=== PATIENT | female | born 1955 | race African-American/Black ===

== ENCOUNTER → 2018-06-21 | Outpatient (CLI) | payer OTHER | LOC: WOUNDCARE 09:17 | PROVIDERS: ATTEND Surgery | DX: I87.331 Chronic venous hypertension (idiopathic) with ulcer and inflammation of right lower extremity (principal); I70.232 Atherosclerosis of native arteries of right leg with ulceration of calf; E11.622 Type 2 diabetes mellitus with other skin ulcer; L97.212 Non-pressure chronic ulcer of right calf with fat layer exposed; I87.322 Chronic venous hypertension (idiopathic) with inflammation of left lower extremity; E11.42 Type 2 diabetes mellitus with diabetic polyneuropathy; E11.65 Type 2 diabetes mellitus with hyperglycemia; I10 Essential (primary) hypertension | CPT/HCPCS: 99204 ==

== ENCOUNTER → 2018-06-21 | Outpatient (CLI) | payer OTHER ==
[2018-06-21 11:51] LABS: BASOPHILS % (AUTO) 1 % (0-10); EOSINOPHILS # (AUTO) 0.2 10^3/uL (0.0-0.3); EOSINOPHILS % (AUTO) 3 % (0-10); HEMATOCRIT 39 % (35-52); HEMOGLOBIN 13.6 G/DL (11.5-16.0); LYMPHOCYTES # (AUTO) 2.2 X 10^3 (1.0-4.0); LYMPHOCYTES % (AUTO) 38 % (12-44); MEAN CORPUSCULAR HEMOGLOBIN 30 PG (25-34); MEAN CORPUSCULAR HGB CONC 35 G/DL (32-36); MEAN CORPUSCULAR VOLUME 85 FL (80-99); MEAN PLATELET VOLUME 10.1 FL (7.4-10.4); MONOCYTES # (AUTO) 0.4 X 10^3 (0.0-1.0); MONOCYTES % (AUTO) 7 % (0-12); NEUTROPHILS % (AUTO) 52 % (42-75); PLATELET COUNT 258 10^3/uL (130-400); RED CELL DISTRIBUTION WIDTH 12.6 % (10.0-14.5); WHITE BLOOD COUNT 5.8 10^3/uL (4.3-11.0)
[2018-06-21 12:12] LABS: ALANINE AMINOTRANSFERASE 15 U/L (0-55); ALBUMIN 4.1 GM/DL (3.2-4.5); ALKALINE PHOSPHATASE 92 U/L (40-136); BILIRUBIN,TOTAL 0.5 MG/DL (0.1-1.0); BUN/CREATININE RATIO 12; CALCIUM 9.2 MG/DL (8.5-10.1); CARBON DIOXIDE 27 MMOL/L (21-32); CHLORIDE 104 MMOL/L (98-107); CREATININE SERUM 0.68 MG/DL (0.60-1.30); GFR ESTIMATED > 60; GLUCOSE 147 MG/DL (70-105); SODIUM 141 MMOL/L (135-145); TOTAL PROTEIN 7.7 GM/DL (6.4-8.2)
== END ==
LOC: LAB 11:24
PROVIDERS: ATTEND Surgery
DX: I87.331 Chronic venous hypertension (idiopathic) with ulcer and inflammation of right lower extremity (principal); I70.232 Atherosclerosis of native arteries of right leg with ulceration of calf; E11.622 Type 2 diabetes mellitus with other skin ulcer; L97.212 Non-pressure chronic ulcer of right calf with fat layer exposed; I87.322 Chronic venous hypertension (idiopathic) with inflammation of left lower extremity; E11.42 Type 2 diabetes mellitus with diabetic polyneuropathy; E11.65 Type 2 diabetes mellitus with hyperglycemia; I10 Essential (primary) hypertension
CPT/HCPCS: 36415; 80053; 83020; 85025

== ENCOUNTER → 2018-06-29 | Outpatient (CLI) | payer OTHER | LOC: WOUNDCARE 15:13 | PROVIDERS: ATTEND Surgery | DX: E11.622 Type 2 diabetes mellitus with other skin ulcer (principal); L97.212 Non-pressure chronic ulcer of right calf with fat layer exposed; I87.331 Chronic venous hypertension (idiopathic) with ulcer and inflammation of right lower extremity; I87.322 Chronic venous hypertension (idiopathic) with inflammation of left lower extremity; E11.42 Type 2 diabetes mellitus with diabetic polyneuropathy; E11.65 Type 2 diabetes mellitus with hyperglycemia; I10 Essential (primary) hypertension | CPT/HCPCS: 87070; 87205 ==

== ENCOUNTER → 2018-07-06 | Outpatient (CLI) | payer OTHER | LOC: WOUNDCARE 15:24 | PROVIDERS: ATTEND Surgery | DX: L92.1 Necrobiosis lipoidica, not elsewhere classified (principal); L97.213 Non-pressure chronic ulcer of right calf with necrosis of muscle; E11.622 Type 2 diabetes mellitus with other skin ulcer; E11.65 Type 2 diabetes mellitus with hyperglycemia ==

== ENCOUNTER → 2018-07-13 | Outpatient (CLI) | payer OTHER | LOC: WOUNDCARE 14:49 | PROVIDERS: ATTEND Surgery | DX: L92.1 Necrobiosis lipoidica, not elsewhere classified (principal); L97.213 Non-pressure chronic ulcer of right calf with necrosis of muscle; E11.622 Type 2 diabetes mellitus with other skin ulcer; E11.65 Type 2 diabetes mellitus with hyperglycemia | CPT/HCPCS: 99213 ==

== ENCOUNTER → 2018-08-30 | Outpatient (CLI) | payer OTHER ==
--- NOTE | 2018-08-30 21:24 | Diagnostic Imaging Report ---
INDICATION: Palpable lump in the left axilla. No prior studies are available for comparison. 2-D and 3-D bilateral diagnostic mammography was performed with a Computer Aided Detection (CAD) system. BB marker was placed at the area of palpable abnormality in the left axilla. FINDINGS: Scattered fibroglandular densities are identified bilaterally. Intramammary lymph node in upper-outer right breast is seen. There are fatty lymph nodes in the axillae bilaterally. No spiculated mass or malignant-appearing microcalcifications are seen. IMPRESSION: No mammographic features suspicious for malignancy are identified. Even so, sonographic interrogation of the area of palpable abnormality in the left axilla is recommended and will be performed today. ACR BI-RADS Category 0: Incomplete. (Needs additional imaging evaluation). Result letter will be mailed to the patient. Note: At least 10% of breast cancer is not imaged by mammography. Dictated by: Dictated on workstation # [id number]
--- NOTE | 2018-08-30 21:36 | Diagnostic Imaging Report ---
INDICATION: Palpable lump in the left axilla. Correlation is made with diagnostic mammogram earlier the same day. FINDINGS: Sonographic interrogation of the area of lump in the left axilla was performed. No sonographic abnormality is seen. No solid or cystic mass is detected. IMPRESSION: No sonographic abnormality is seen. Continued close clinical and self breast exam is recommended to confirm stability of the palpable abnormality. ACR BI-RADS Category 1: Negative. Dictated by: Dictated on workstation # [id number]
== END ==
LOC: RAD 13:29
PROVIDERS: ATTEND Registered Nurse
DX: N63.20 Unspecified lump in the left breast, unspecified quadrant (principal)
CPT/HCPCS: 76642; 77066

== ENCOUNTER 2021-10-13 18:51 | Inpatient (IN) | payer SELFPAY ==
[~2021-10-13] VITALS: Ht 157 cm; Wt 75.6 kg
[2021-10-13] MEDS ORDERED: ONDANSETRON 4 MG/2 ML (SDV) Z0FRAN IV PRN (20:45)
[2021-10-13] MEDS ORDERED: MELATONIN 3 MG TABLET PO PRN (20:45)
[2021-10-13] MEDS ORDERED: fentaNYL INJ 100 MCG/2 ML AMP IVP PRN (20:45)
[2021-10-13] MEDS ORDERED: HYDROcodone/APAP 5 MG/325 MG (LORTAB) TAB PO PRN (20:45)
[2021-10-13] MEDS ORDERED: PROMETHAZINE INJ 25 MG/ML (PHENERGAN) AMP IVP PRN (20:45)
[2021-10-13 21:27] VITALS: BP 192/92
[2021-10-13] MEDS: NS IV 1000 ML 1,000 ML IV SCH (21:29)
[2021-10-13] MEDS: inSUlin ASPART (NovoLOG) 1 UNIT/0.01 ML (CHARGE PER UNIT) SC SCH (21:29)
[2021-10-13] MEDS ORDERED: hydrALAZINE (APESOLINE) 20 MG/ML VIAL IV PRN (22:45)
[2021-10-14] VITALS (7 sets, daily range): BP systolic 119–162; BP diastolic 63–74
[2021-10-14 05:21] LABS: HEMATOCRIT 35 % (35-52); MEAN CORPUSCULAR HEMOGLOBIN 29 pg (25-34); MEAN CORPUSCULAR HGB CONC 34 g/dL (32-36); MEAN CORPUSCULAR VOLUME 86 fL (80-99); MEAN PLATELET VOLUME 10.1 fL (9.0-12.2); PLATELET COUNT 246 10^3/uL (130-400); WHITE BLOOD COUNT 16.2 10^3/uL (4.3-11.0)
[2021-10-14 05:35] LABS: POTASSIUM 3.5 MMOL/L (3.6-5.0)
[2021-10-14 05:36] LABS: CALCIUM 8.7 MG/DL (8.5-10.1)
[2021-10-14] MEDS: NS IV 1000 ML 1,000 ML IV SCH ×2 (05:38→15:39)
[2021-10-14 05:40] LABS: CREATININE SERUM 0.69 MG/DL (0.60-1.30)
[2021-10-14] MEDS: inSUlin ASPART (NovoLOG) 1 UNIT/0.01 ML (CHARGE PER UNIT) SC SCH ×6 (05:41→21:39)
[2021-10-14] MEDS ORDERED: INSU100V5 SQ (10:08)
[2021-10-14] MEDS ORDERED: LISI40TA9 PO (10:09)
[2021-10-14] MEDS ORDERED: METF-478 PO (10:09)
[2021-10-14] MEDS ORDERED: METF-865 PO (10:10)
[2021-10-14] MEDS ORDERED: INSU100C3 SQ (10:14)
[2021-10-14] MEDS ORDERED: CHOL20002 PO (10:15)
[2021-10-14] MEDS ORDERED: NAPR220T66 PO (10:16)
[2021-10-14] MEDS ORDERED: ATOR40TA70 PO (10:16)
[2021-10-14] MEDS ORDERED: ACET-2267 PO (10:18)
[2021-10-14] MEDS ORDERED: hydrALAZINE (APESOLINE) 20 MG/ML VIAL IV PRN (10:45)
[2021-10-14] MEDS ORDERED: lisINopril 40 MG (PRINIVIL) TABLET PO NR (11:00)
--- NOTE | 2021-10-14 15:08 | History & Physical-Hospitalist ---
History of Present Illness HPI/Chief Complaint Gaby Barber is a 66 year old female with PMH HTN, T2DM on insulin, HLD, obesity, who presented with bright red blood per rectum. This first started yesterday. She had one episode of bloody stool this morning. She has also been having abdominal pain, more on the left. She also had some nausea and non-bloody vomiting. She is a [employer] and would not accept blood products. She is not on blood thinners. She denies shortness of breath and cough. She denies fevers and chills. Source: patient Exam Limitations: no limitations Date Seen 10/14/21 Time Seen by a Provider: 10:40 Attending Physician No,Local Physician PCP Admitting Physician: Martha Woodall MD Attending Physician: Keira Moseley MD Referring Physician Date of Admission Oct 13, 2021 at 21:03 Home Medications & Allergies Home Medications Reviewed patient Home Medication Reconciliation performed by pharmacy medication reconciliations firestopper technician and/or nursing. Patients Allergies have been reviewed. Allergies Allergies Coded Allergies No Known Drug Allergies (Unverified10/13/21) Past [id number] Hx Patient Social History Tobacco Use?: No Substance use?: No Alcohol Use?: No Pt feels they are or have been: No Current Status Advance Directives: Yes Advance Directive Location: Copy placed in chart Communicates: Verbally Primary Language: Iraqi Preferred Spoken Language: Iraqi Is interpretation needed?: No Past Medical History High Cholesterol, Hypertension Diabetes, Insulin dep Family Medical History No Pertinent Family Hx Review of Systems Constitutional: no symptoms reported EENTM: no symptoms reported Respiratory: no symptoms reported Cardiovascular: no symptoms reported Gastrointestinal: abdominal pain, nausea, vomiting, other (hematochezia) Genitourinary: no symptoms reported Musculoskeletal: no symptoms reported Physical Exam Physical Exam Vital Signs Vital Signs - First Documented 10/13/21 21:27 Temp 36.0 Pulse 87 Resp 20 B/P (MAP) 192/92 (125) Pulse Ox 95 O2 Delivery Room Air Capillary Refill : Height, Weight, BMI Height: '" Weight: lbs. oz. kg; 30.67 BMI Method: General Appearance: No Apparent Distress, WD/WN HEENT: PERRL/EOMI, Pharynx Normal Neck: Normal Inspection, Supple Respiratory: Lungs Clear, Normal Breath Sounds, No Respiratory Distress Cardiovascular: Regular Rate, Rhythm, No Edema, No Murmur Gastrointestinal: Normal Bowel Sounds, Soft, Tenderness (left sided) Extremity: No Pedal Edema, Other (wound on bilateral shins from healed ulcers) Neurologic/Psychiatric: Alert, Normal Mood/Affect Skin: Normal Color, Warm/Dry Results Results/Procedures Labs Laboratory Tests 10/14/21 05:08 Patient resulted labs reviewed. Imaging: Reviewed Imaging Report Assessment/Plan Admission Diagnosis Bright red blood per rectum Admission Status: Inpatient Order (span 2 midnights) Reason for Inpatient Admission: GI bleeding Assessment and Plan Hematochezia Colitis Lactic acidosis Orthod[employer] CT Abdomen with colitis from transverse colon to rectum Continued bright red blood per rectum Surgery consulted NPO IV fluids Hgb 12, relatively stable Lung nodules CT chest with bilateral lung nodules Recommend 6-8 week follow up T2DM Levemir Novolog with meals Sliding scale insulin HTN HLD Obesity Continue home meds DVT prophylaxis: held due to GI bleeding Diagnosis/Problems Diagnosis/Problems (1) BRBPR (bright red blood per rectum) Status: Acute (2) Colitis Status: Acute (3) Lung nodules Status: Acute (4) T2DM (type 2 diabetes mellitus) Status: Acute Qualifiers: Diabetes mellitus mcc insulin use: with mcc use Diabetes mellitus complication status: with hyperglycemia Qualified Codes: E11.65 - Type 2 diabetes mellitus with hyperglycemia; Z79.4 - [facility] (current) use of insulin (5) Refusal of blood transfusions as patient is Orthodoxy Status: Acute KEIRA MOSELEY MD Oct 14, 2021 15:08
[2021-10-14] MEDS ORDERED: PIPERACILLIN SODIUM/TAZOBACTAM 4.5 GM in NS (IVPB) 100 ML IV NR (16:15)
--- NOTE | 2021-10-14 16:22 | CONSULTATION REPORT ---
DATE OF SERVICE: 10/14/2021 ADMITTING PHYSICIAN: Dr. Martha Woodall. HISTORY OF PRESENT ILLNESS: The patient is a 66-year-old female, who presented to the Emergency Department with rectal bleeding. She states that this had started the day before and before this happened, she had noticed some crampy abdominal pain, more on the left side. She had reported some nausea as well as vomiting; however, just bilious material. She does not report having these types of symptoms before in the past. Her hemoglobin is stable; however, she will not accept blood product transfusions due to her scientologist beliefs. She does not report any respiratory symptoms as well as no fever, no chills. A CT scan was performed at an outside institution, which did show inflammation of the colon consistent with colitis. PAST MEDICAL HISTORY: Hypertension, hypercholesterolemia, diabetes. PAST SURGICAL HISTORY: None. ALLERGIES: NO KNOWN DRUG ALLERGIES. MEDICATIONS: Atorvastatin 40 mg daily, NovoLog insulin 20 units q.a.c, detemir insulin 25 units b.i.d., lisinopril 40 mg daily, metformin 500 mg b.i.d., naproxen p.r.n. SOCIAL HISTORY: Negative smoke, negative alcohol. FAMILY HISTORY: Noncontributory. VITAL SIGNS: Temperature 37.0, blood pressure 144/71, pulse 88, respirations 16, pulse ox 95% on room air. REVIEW OF SYSTEMS: Well-nourished female currently in no acute distress. She is not experiencing any shortness of breath or difficulty breathing. No chest pain, palpitations, diaphoresis. No nausea, vomiting with episodes of rectal bleeding, which was red in color. She has had one episode this morning; however, has not had a bowel movement since that time. No fever, chills, no recent inadvertent weight loss. All other review of systems negative. PHYSICAL EXAMINATION: CHEST: Clear. Good breath sounds bilaterally. HEART: Regular, no murmurs. EXTREMITIES: No lower extremity edema, negative Homans sign. HEENT: No scleral icterus. NECK: No cervical lymphadenopathy. ABDOMEN: Soft, nondistended. There is mild discomfort upon palpation in left lateral and lower abdominal quadrant. No peritoneal signs. No hernias. SKIN: Warm, dry. LABORATORY DATA: WBC 16.2, hemoglobin 12.0, hematocrit 35, platelets 246. BUN 10, creatinine 0.69. ASSESSMENT AND PLAN: A 66-year-old female with colitis and lower gastrointestinal bleeding. We are unsure of the etiology of the colitis; however, this may be due to chronic ischemic colitis and low flow states; however, may also be a possibility of bacterial overgrowth including Clostridium difficile. There is also the possibility of an undiagnosed inflammatory bowel disease such as ulcerative colitis or Crohn's disease. We will continue with medical management for now as well as antibiotics; however, at some point, she will need a colonoscopy as well as biopsies as appropriate. Job ID: [id number] DocumentID: [id number] Dictated Date: 10/14/2021 15:49:37 Office Machine Mechanic Date: 10/14/2021 16:22:14 Dictated By: RHETT GASCA MD
[2021-10-14] MEDS ORDERED: cefTRIAXone 1 GM PRE-MIX 50 ML IV SCH (17:00)
[2021-10-14] MEDS: PIPERACILLIN SODIUM/TAZOBACTAM 4.5 GM in NS (IVPB) 100 ML IV SCH (21:40)
[2021-10-15 03:34] VITALS: BP 126/60
[2021-10-15] MEDS: inSUlin ASPART (NovoLOG) 1 UNIT/0.01 ML (CHARGE PER UNIT) SC SCH ×5 (05:43→16:55)
[2021-10-15] MEDS: NS IV 1000 ML 1,000 ML IV SCH ×2 (05:45→11:52)
[2021-10-15] MEDS: PIPERACILLIN SODIUM/TAZOBACTAM 4.5 GM in NS (IVPB) 100 ML IV SCH ×3 (05:46→23:00)
[2021-10-15 07:41] VITALS: BP 127/73
[2021-10-15 08:18] LABS: BASOPHILS # (AUTO) 0.1 10^3/uL (0.0-0.1); BASOPHILS % (AUTO) 0 % (0-10); EOSINOPHILS # (AUTO) 0.2 10^3/uL (0.0-0.3); EOSINOPHILS % (AUTO) 1 % (0-10); HEMATOCRIT 33 % (35-52); HEMOGLOBIN 11.5 g/dL (11.5-16.0); LYMPHOCYTES # (AUTO) 1.7 10^3/uL (1.0-4.0); LYMPHOCYTES % (AUTO) 11 % (12-44); MEAN CORPUSCULAR HEMOGLOBIN 30 pg (25-34); MEAN CORPUSCULAR HGB CONC 34 g/dL (32-36); MEAN CORPUSCULAR VOLUME 88 fL (80-99); MEAN PLATELET VOLUME 10.2 fL (9.0-12.2); MONOCYTES % (AUTO) 6 % (0-12); NEUTROPHILS # (AUTO) 13.1 10^3/uL (1.8-7.8); NEUTROPHILS % (AUTO) 81 % (42-75); PLATELET COUNT 226 10^3/uL (130-400); WHITE BLOOD COUNT 16.1 10^3/uL (4.3-11.0)
[2021-10-15 08:34] LABS: BAND NEUTROPHILS 0 %; BASOPHILS % (MANUAL) 0 %; EOSINOPHILS % (MANUAL) 0 %; LYMPHOCYTES % (MANUAL) 17 %; MONOCYTES % (MANUAL) 8 %; NEUTROPHILS % (MANUAL) 75 %
[2021-10-15 08:35] LABS: RBC MORPH NORMAL
[2021-10-15] MEDS: lisINopril 40 MG (PRINIVIL) TABLET PO SCH (08:42)
[2021-10-15] MEDS: PANTOPRAZOLE 40 MG (PROTONIX) VIAL IV SCH (08:42)
[2021-10-15 08:44] LABS: POTASSIUM 3.3 MMOL/L (3.6-5.0)
[2021-10-15 08:45] LABS: CALCIUM 8.4 MG/DL (8.5-10.1); CREATININE SERUM 0.67 MG/DL (0.60-1.30); MAGNESIUM 1.5 MG/DL (1.6-2.4)
[2021-10-15] MEDS ORDERED: KCL 20 MEQ TAB (K-DUR) PO ONE ×2 (09:30→11:30)
[2021-10-15] MEDS: MAGNESIUM 1 GM/100 ML IVPB 100 ML IV SCH ×3 (10:08→11:49)
[2021-10-15] MEDS: POTASSIUM CL 10MEQ/50ML IVPB 50 ML IV SCH (10:14)
[2021-10-15] MEDS: KCL 20 MEQ TAB (K-DUR) PO SCH (10:15)
[2021-10-15 11:12] VITALS: BP 133/76
[2021-10-15] MEDS: MAGNESIUM CITRATE 300 ML BTL PO NR ×2 (15:52→18:21)
[2021-10-15 15:59] VITALS: BP_SYST 144; BP_SYST 166; BP_DIAS 80; BP_DIAS 82
--- NOTE | 2021-10-15 16:04 | Progress Note ---
Subjective Date Seen by a Provider: Oct 15, 2021 Time Seen by a Provider: 14:00 Subjective/Events-last exam doing ok. less abd pain. did have maroon stool today. Focused Exam Lactate Level 10/13/21 23:45: Lactic Acid Level 2.59*H 10/14/21 02:10: Lactic Acid Level 2.75*H 10/14/21 05:08: Lactic Acid Level 1.17 Objective Exam Vital Signs Date Time Temp Pulse Resp B/P (MAP) Pulse Ox O2 Delivery O2 Flow Rate FiO2 10/15/21 15:59 37.1 104 20 166/80 (108) 97 Room Air 10/15/21 11:12 37.0 80 18 133/76 (95) 97 Room Air 10/15/21 08:00 Room Air 10/15/21 07:41 37.1 76 18 127/73 (91) 97 Room Air 10/15/21 03:34 36.7 80 18 126/60 (82) 95 Room Air 10/14/21 23:44 36.2 84 18 130/63 (85) 95 Room Air 10/14/21 20:21 Room Air 10/14/21 19:45 36.6 86 20 162/74 (103) 96 Room Air 10/14/21 16:10 37.0 82 22 154/71 (98) 97 Room Air I & O 10/15/21 07:00 Intake Total 3000 ml Balance 3000 ml Capillary Refill : General Appearance: No Apparent Distress HEENT: PERRL/EOMI Neck: Full Range of Motion Respiratory: Chest Non Tender, Lungs Clear, Normal Breath Sounds Cardiovascular: Regular Rate, Rhythm Gastrointestinal: normal bowel sounds, soft, tenderness Extremity: Normal Capillary Refill Neurologic/Psychiatric: Alert, Oriented x3 Skin: Normal Color Lymphatic: No Adenopathy Results Lab Laboratory Tests 10/14/21 19:22: Glucometer 263H 10/15/21 05:35: Glucometer 109 10/15/21 08:00: White Blood Count 16.1H, Red Blood Count 3.81, Hemoglobin 11.5, Hematocrit 33L, Mean Corpuscular Volume 88, Mean Corpuscular Hemoglobin 30, Mean Corpuscular Hemoglobin Concent 34, Red Cell Distribution Width 13.0, Platelet Count 226, Mean Platelet Volume 10.2, Immature Granulocyte % (Auto) 1, Neutrophils (%) (Auto) 81H, Lymphocytes (%) (Auto) 11L, Monocytes (%) (Auto) 6, Eosinophils (%) (Auto) 1, Basophils (%) (Auto) 0, Neutrophils # (Auto) 13.1H, Lymphocytes # (Auto) 1.7, Monocytes # (Auto) 1.0, Eosinophils # (Auto) 0.2, Basophils # (Auto) 0.1, Immature Granulocyte # (Auto) 0.1, Neutrophils % (Manual) 75, Lymphocytes % (Manual) 17, Monocytes % (Manual) 8, Eosinophils % (Manual) 0, Basophils % (Manual) 0, Band Neutrophils 0, Blood Morphology Comment NORMAL, Sodium Level 139, Potassium Level 3.3L, Chloride Level 105, Carbon Dioxide Level 23, Anion Gap 11, Blood Urea Nitrogen 6L, Creatinine 0.67, Estimat Glomerular Filtration Rate 98, BUN/Creatinine Ratio 9, Glucose Level 102, Calcium Level 8.4L, Magnesium Level 1.5L 10/15/21 10:29: Glucometer 163H 10/15/21 10:35: Influenza Type A (RT-PCR) Not Detected, Influenza Type B (RT-PCR) Not Detected, SARS-CoV-2 RNA (RT-PCR) Not Detected 10/15/21 15:44: Glucometer 76 Assessment/Plan Assessment/Plan Assess & Plan/Chief Complaint colitis with rectal bleed. CT abd left colitis as well as pulm nodules. will proceed with colonoscopy with bx tomorrow. RHETT GASCA MD Oct 15, 2021 16:04
--- NOTE | 2021-10-15 16:05 | Progress Note-Pre Operative ---
Pre-Operative Progress Note H&P Reviewed The H&P was reviewed, patient examined and no changes noted. Date Seen by Provider: Oct 15, 2021 Time Seen by Provider: 14:00 Date H&P Reviewed: Oct 15, 2021 Time H&P Reviewed: 14:00 Pre-Operative Diagnosis: colitis with rectal bleed and pulm nodules RHETT GASCA MD Oct 15, 2021 16:05
--- NOTE | 2021-10-15 16:27 | Progress Note - Hospitalist ---
Subjective HPI/CC On Admission Date Seen by Provider: Oct 15, 2021 Time Seen by Provider: 10:10 Gaby Barber is a 66 year old female with PMH HTN, T2DM on insulin, HLD, obesity, who presented with bright red blood per rectum. This first started yesterday. She had one episode of bloody stool this morning. She has also been having abdominal pain, more on the left. She also had some nausea and non-bloody vomiting. She is a Zoroastrian and would not accept blood products. She is not on blood thinners. She denies shortness of breath and cough. She denies fevers and chills. Subjective/Events-last exam She is still having bright red blood in her bowel movements. She is still having a bit of abdominal pain. She denies nausea and vomiting. She denies fevers and chills. She has a cough. Focused Exam Lactate Level 10/13/21 23:45: Lactic Acid Level 2.59*H 10/14/21 02:10: Lactic Acid Level 2.75*H 10/14/21 05:08: Lactic Acid Level 1.17 Objective Exam Vital Signs Vital Signs Date Time Temp Pulse Resp B/P (MAP) Pulse Ox O2 Delivery O2 Flow Rate FiO2 10/15/21 15:59 37.1 80 18 144/82 (102) 97 Room Air Capillary Refill : General Appearance: No Apparent Distress, Obese Respiratory: Lungs Clear, No Respiratory Distress Cardiovascular: Regular Rate, Rhythm, No Murmur Gastrointestinal: Normal Bowel Sounds, Soft Extremity: Normal Inspection, No Pedal Edema Neurologic/Psychiatric: Alert, Normal Mood/Affect Skin: Normal Color, Warm/Dry Results/Procedures Lab Laboratory Tests 10/15/21 08:00 Patient resulted labs reviewed. Imaging: Reviewed Imaging Report Assessment/Plan Assessment and Plan Assess & Plan/Chief Complaint Hematochezia Colitis Lactic acidosis [employer]oro[employer] CT Abdomen with colitis from transverse colon to rectum Continued bright red blood per rectum Surgery following Clear liquids IV fluids Zosyn Hgb stable Planning for colonoscopy tomorrow, prep today Lung nodules CT chest with bilateral lung nodules Recommend 6-8 week follow up T2DM Levemir Novolog with meals Sliding scale insulin Hypokalemia Hypomagnesemia Replace per protocol HTN HLD Obesity Continue home meds DVT prophylaxis: held due to GI bleeding Diagnosis/Problems Diagnosis/Problems (1) BRBPR (bright red blood per rectum) Status: Acute (2) Colitis Status: Acute (3) Lung nodules Status: Acute (4) T2DM (type 2 diabetes mellitus) Status: Acute Qualifiers: Diabetes mellitus custodial insulin use: with terminal carman use Diabetes mahamed jordan complication status: with hyperglycemia Qualified Codes: E11.65 - Type 2 diabetes mellitus with hyperglycemia; Z79.4 - terminal worker (current) use of insulin (5) Refusal of blood transfusions as patient is Zoroastrian Status: Acute KEIRA MOSELEY MD Oct 15, 2021 16:27
[2021-10-15] MEDS ORDERED: MAGNESIUM CITRATE 300 ML BTL PO NR (18:15)
[2021-10-15 20:27] VITALS: BP 167/79
[2021-10-15 23:17] VITALS: BP 153/85
[2021-10-16] VITALS (8 sets, daily range): BP systolic 92–166; BP diastolic 53–86
[2021-10-16] MEDS: NS IV 1000 ML 1,000 ML IV SCH ×3 (02:30→13:12)
[2021-10-16] MEDS: inSUlin ASPART (NovoLOG) 1 UNIT/0.01 ML (CHARGE PER UNIT) SC SCH ×5 (05:31→20:23)
[2021-10-16 05:56] LABS: POTASSIUM 3.7 MMOL/L (3.6-5.0)
[2021-10-16 05:58] LABS: CALCIUM 8.1 MG/DL (8.5-10.1)
[2021-10-16] MEDS ORDERED: MAGNESIUM 1 GM/100 ML IVPB 100 ML IV SCH (06:00)
[2021-10-16] MEDS ORDERED: POTASSIUM CL 10MEQ/50ML IVPB 50 ML IV SCH (06:00)
[2021-10-16] MEDS: POTASSIUM CL 10MEQ/50ML IVPB 50 ML IV SCH (06:00)
[2021-10-16] MEDS: KCL 20 MEQ TAB (K-DUR) PO SCH (06:00)
[2021-10-16] MEDS ORDERED: KCL 20 MEQ TAB (K-DUR) PO SCH (06:00)
[2021-10-16 06:02] LABS: CREATININE SERUM 0.66 MG/DL (0.60-1.30)
[2021-10-16] MEDS: PIPERACILLIN SODIUM/TAZOBACTAM 4.5 GM in NS (IVPB) 100 ML IV SCH ×3 (06:02→22:19)
[2021-10-16] MEDS: MAGNESIUM 1 GM/100 ML IVPB 100 ML IV SCH (06:10)
[2021-10-16 07:51] LABS: HEMOGLOBIN 11.2 g/dL (11.5-16.0)
[2021-10-16] MEDS: PANTOPRAZOLE 40 MG (PROTONIX) VIAL IV SCH (08:48)
[2021-10-16] MEDS ORDERED: LACTATED RINGERS 1,000 ML IV STA ×2 (09:43→10:09)
[2021-10-16] MEDS ORDERED: LIDOCAINE JELLY 2% 6 ML SYRINGE MM PRN ×2 (09:45→10:15)
[2021-10-16] MEDS ORDERED: LACTATED RINGERS 1,000 ML IV ONE (09:47)
[2021-10-16] MEDS ORDERED: PROPOFOL INJECTION 50 ML IV ONE (10:01)
[2021-10-16] MEDS ORDERED: LIDOCAINE JELLY 2% 6 ML SYRINGE ONE (10:06)
--- NOTE | 2021-10-16 10:56 | Progress Note-Post Operative ---
Post-Operative Progess Note Surgeon (s)/Lunch Wagon Operator (s) Surgeon RHETT GASCA MD Lunch Wagon Operator: none Pre-Operative Diagnosis colitis with rectal bleed and pulm nodules Post-Operative Diagnosis severe colitis rectosigmoid to splenic flexure. no neoplams Procedure & Operative Findings Date of Procedure 10/16/21 Procedure Performed/Findings colonoscopy with bx. Anesthesia Type mac Estimated Blood Loss Estimated blood loss (mL): minimal Specimens/Packing Specimens Removed descending, sigmoid, rectosigmoid RHETT GASCA MD Oct 16, 2021 10:56
--- NOTE | 2021-10-16 10:59 | Progress Note - Hospitalist ---
Subjective HPI/CC On Admission Date Seen by Provider: Oct 16, 2021 Time Seen by Provider: 09:40 Gaby Barber is a 66 year old female with PMH HTN, T2DM on insulin, HLD, obesity, who presented with bright red blood per rectum. This first started yesterday. She had one episode of bloody stool this morning. She has also been having abdominal pain, more on the left. She also had some nausea and non-bloody vomiting. She is a Protestant and would not accept blood products. She is not on blood thinners. She denies shortness of breath and cough. She denies fevers and chills. Subjective/Events-last exam She had several bowel movements last night with the prep. She was not having blood in her stools. She is still having some abdominal discomfort. Focused Exam Lactate Level 10/13/21 23:45: Lactic Acid Level 2.59*H 10/14/21 02:10: Lactic Acid Level 2.75*H 10/14/21 05:08: Lactic Acid Level 1.17 Objective Exam Vital Signs Vital Signs Date Time Temp Pulse Resp B/P (MAP) Pulse Ox O2 Delivery O2 Flow Rate FiO2 10/16/21 10:52 75 16 95 Room Air 10/16/21 10:47 10.00 10/16/21 08:07 36.6 156/77 (103) Capillary Refill : General Appearance: No Apparent Distress, Obese Respiratory: Lungs Clear, No Respiratory Distress Cardiovascular: Regular Rate, Rhythm, No Murmur Gastrointestinal: Normal Bowel Sounds, Soft, Tenderness Extremity: Normal Inspection, No Pedal Edema Neurologic/Psychiatric: Alert, Normal Mood/Affect Results/Procedures Lab Laboratory Tests 10/16/21 05:25 Patient resulted labs reviewed. Imaging: Reviewed Imaging Report Assessment/Plan Assessment and Plan Assess & Plan/Chief Complaint Hematochezia Colitis Lactic acidosis Protestant CT Abdomen with colitis from transverse colon to rectum Continued bright red blood per rectum Surgery following NPO IV fluids Zosyn Hgb stable Colonoscopy today Lung nodules CT chest with bilateral lung nodules Recommend 6-8 week follow up T2DM Levemir Novolog with meals Sliding scale insulin Hypokalemia Hypomagnesemia Replace per protocol HTN HLD Obesity Continue home meds DVT prophylaxis: held due to GI bleeding Diagnosis/Problems Diagnosis/Problems (1) BRBPR (bright red blood per rectum) Status: Acute (2) Colitis Status: Acute (3) Lung nodules Status: Acute (4) T2DM (type 2 diabetes mellitus) Status: Acute Qualifiers: Diabetes mellitus superintendent terminal insulin use: with superintendent terminal use Diabetes mellitus complication status: with hyperglycemia Qualified Codes: E11.65 - Type 2 diabetes mellitus with hyperglycemia; Z79.4 - [facility]-way (current) use of insulin (5) Refusal of blood transfusions as patient is Protestant Status: Acute KEIRA MOSELEY MD Oct 16, 2021 10:59
[2021-10-16] MEDS: lisINopril 40 MG (PRINIVIL) TABLET PO SCH (11:13)
[2021-10-16] MEDS: MESALAMINE DR 400 MG (ASACOL/DELZICOL) TAB/CAPS PO SCH ×2 (13:12→17:44)
--- NOTE | 2021-10-16 13:22 | Anesthesia-General Post-Op ---
MAC Patient Condition Mental Status/LOC: Same as Preop Cardiovascular: Satisfactory Nausea/Vomiting: Absent Respiratory: Satisfactory Pain: Controlled Complications: Absent Post Op Complications Complications None Follow Up Care/Instructions Patient Instructions None needed. Anesthesiology Discharge Order Discharge Order Patient is doing well, no complaints, stable vital signs, no apparent adverse anesthesia problems. No complications reported per nursing. KADEN DOWNING CRNA Oct 16, 2021 13:22
--- NOTE | 2021-10-16 18:26 | OPERATIVE REPORT ---
DATE OF SERVICE: 10/16/2021 ADMITTING PHYSICIAN: Dr. Woodall. PREOPERATIVE DIAGNOSES: Colitis and rectal bleeding. POSTOPERATIVE DIAGNOSES: Severe colitis, descending sigmoid colon to the area of the rectosigmoid junction with ulcerative plaques, mild sigmoid diverticulosis. No neoplasms. ESTIMATED BLOOD LOSS: Minimal. FINDINGS: Severe colitis, descending sigmoid colon to the area of the rectosigmoid junction with ulcerative plaques, mild sigmoid diverticulosis. No neoplasms. DISPOSITION: The patient tolerated the procedure well. INDICATIONS: The patient is a 66-year-old female, who presented with a crampy abdominal pain as well as rectal bleeding. She reports that she has not had this before in the past. She had a CT scan performed at outside institution, which did show inflammation of colon more in the left side. There were also some pulmonary nodules identified as well. Since being admitted, her bleeding has resolved. Due to the pulmonary lesions, it was recommended to proceed with a colonoscopy to rule out malignancy. DESCRIPTION OF PROCEDURE: The patient was brought to the endoscopy suite, laid in the left lateral decubitus position. After adequate IV pain and sedative medications and monitored anesthesia care, a digital rectal examination was performed. There were no fistulous tracts or any perianal and inflammatory changes. Normal sphincter tone was felt and there were no palpable masses. The endoscope was then intubated into the anus and rectum gently insufflated. The distal end of the rectum was normal. At approximately the rectosigmoid junction, circumferential inflammatory changes were identified and biopsies were taken of the rectosigmoid junction. We then advanced the scope through the sigmoid colon where this was significantly worse with ulcerative plaques throughout. Biopsies were taken with forceps with visualization of good hemostasis. A mild diverticulosis was also identified. The inflammation in inflammatory plaques extended through the descending colon. This did stop at approximately the splenic flexure. The remainder of the transverse and ascending colon to the cecum were normal. No other lesions identified. The endoscope was then slowly withdrawn while taking a second look and suctioning of residual air with no additional findings. The patient tolerated the procedure well. We feel that this is likely some form of inflammatory bowel disease and based on the distribution an ulcerative colitis. Since being admitted, she has improved with bowel rest as well as IV antibiotics. We will also start her on first line therapy for inflammatory bowel disease, which is mesalamine 800 mg t.i.d. for 6 weeks, but she will also eventually need to be referred to gastroenterology for residential maintenance therapy. Job ID: [id number] DocumentID: [id number] Dictated Date: 10/16/2021 10:50:44 Pre Owned Sales Manager Date: 10/16/2021 18:26:15 Dictated By: RHETT GASCA MD
[2021-10-17] MEDS: inSUlin ASPART (NovoLOG) 1 UNIT/0.01 ML (CHARGE PER UNIT) SC SCH ×6 (05:48→16:01)
[2021-10-17] MEDS: NS IV 1000 ML 1,000 ML IV SCH (05:50)
[2021-10-17] MEDS: PIPERACILLIN SODIUM/TAZOBACTAM 4.5 GM in NS (IVPB) 100 ML IV SCH ×2 (06:54→15:59)
[2021-10-17 07:04] LABS: POTASSIUM 3.6 MMOL/L (3.6-5.0)
[2021-10-17 07:05] LABS: CALCIUM 7.9 MG/DL (8.5-10.1)
[2021-10-17 07:09] LABS: CREATININE SERUM 0.67 MG/DL (0.60-1.30)
[2021-10-17 07:12] LABS: MAGNESIUM 1.8 MG/DL (1.6-2.4)
[2021-10-17] MEDS: KCL 20 MEQ TAB (K-DUR) PO SCH (07:13)
[2021-10-17] MEDS: MAGNESIUM 1 GM/100 ML IVPB 100 ML IV SCH (07:13)
[2021-10-17] MEDS: POTASSIUM CL 10MEQ/50ML IVPB 50 ML IV SCH (07:14)
[2021-10-17 08:04] VITALS: BP 151/81
[2021-10-17 08:09] LABS: HEMOGLOBIN 9.9 g/dL (11.5-16.0)
[2021-10-17] MEDS ORDERED: guaiFENesin/DM (ROBITUSSIN DM) 10 ML UDC PO PRN (08:15)
[2021-10-17] MEDS: lisINopril 40 MG (PRINIVIL) TABLET PO SCH (08:49)
[2021-10-17] MEDS: PANTOPRAZOLE 40 MG (PROTONIX) VIAL IV SCH (08:49)
[2021-10-17] MEDS: MESALAMINE DR 400 MG (ASACOL/DELZICOL) TAB/CAPS PO SCH ×3 (08:49→18:11)
[2021-10-17] MEDS ORDERED: KCL 20 MEQ TAB (K-DUR) PO ONE (09:00)
[2021-10-17] MEDS ORDERED: MSL400TEC PO (11:51)
--- NOTE | 2021-10-17 11:55 | Physical Therapy Evaluation ---
PT Evaluation-General Medical Diagnosis Admission Date Oct 13, 2021 at 21:03 Medical Diagnosis: colitis Onset Date: Oct 13, 2021 Therapy Diagnosis Therapy Diagnosis: debility/weakness Precautions Precautions/Isolations: Standard Precautions Referral Physician: Shelly Reason for Referral: Evaluation/Treatment Medical History Pertinent Medical History: DM, HTN Current History admit secondary to blood in stool Reviewed History: Yes Social History Home: Apartment Prior Prior Level of Function SCALE: Activities may be completed with or without assistive devices. 5-Fcvjlqpfko-jylgjze completes the activity by him/herself with no assistance from a helper. 5-Set-up or Clean-up Assistance-helper sets up or cleans up; patient completes activity. Wilson assists only prior to or following the activity. 4-Supervision or Touching Assistance-helper provides verbal cues and/or touching/steadying and/or contact guard assistance as patient completes activity. Assistance may be provided throughout the activity or intermittently. 3-Partial/Moderate Assistance-helper does LESS THAN HALF the effort. Wilson lifts, holds or supports trunk or limbs, but provides less than half the effort. 2-Substantial/Maximal Assistance-helper does MORE THAN HALF the effort. Wilson lifts or holds trunk or limbs and provides more than half the effort. 8-Pykeyrvql-jxrhfr does ALL the effort. Patient does none of the effort to com plete the activity. Or, the assistance of 2 or more helpers is required for the patient to complete the activity. If activity was not attempted, code reason: 7-Patient Refused. 9-Not Applicable-not attempted and the patient did not perform the activity before the current illness, exacerbation or injury. 10-Not Attempted due to Environmental Limitations-(lack of equipment, weather restraints, etc.). 88-Not Attempted due to Medical Conditions or Safety Concerns. Bed Mobility: 6 Transfers (B,C,W/C): 6 Gait: 6 Stairs: 6 Indoor Mobility (Ambulation): Independent Stairs: Independent Prior Devices Use: None PT Evaluation-Current Subjective Patient agrees to PT. Objective Patient Orientation: Normal For Age Attachments: IV ROM/Strength ROM Lower Extremities bilateral LE WFL Strength Lower Extremities 4/5 grossly bilateral LE Integumentary/Posture Bowel Incontinence: No Bladder Incontinence: No Posture WFL Neuromuscular (Tone, Coordination, Reflexes) grossly intact Sensory Vision: Functional Hearing: Functional Transfers Lying to Sitting/Side of Bed(Q: 6 Sit to Stand (QC): 6 Chair/Vce-dz-Hvsbz Xfer(QC): 6 Toilet Transfer (QC): 6 Gait Mode of Locomotion: Walk Anticipated Mode of Locomotion: Walk Walk 10 feet (QC): 6 Walk 50 ft with 2 Turns(QC): 6 Walk 150 ft (QC): 6 Distance: 250' Gait Assistive Device: None Comments/Gait Description safe and functional with no deviation Balance Sitting Static: Normal Sitting Dynamic: Normal Standing Static: Normal Standing Dynamic: Fair Assessment/Needs Patient is currently at [facility] with all gross motor skills and does not require skilled PT intervention. Rehab Potential: Fair PT Plan Treatment/Plan Treatment Plan: Discontinue PT, goals met Treatment Duration: Oct 17, 2021 Frequency: 1 time per week Estimated Hrs Per Day: .25 hour per day Patient and/or Family Agrees t: Yes Time/GCodes Time In: 1042 Time Out: 1053 Total Billed Treatment Time: 11 Total Billed Treatment 1 visit EVMod 11 min SHAN FRANCIS PT Oct 17, 2021 11:55
--- NOTE | 2021-10-17 15:40 | Discharge Summary ---
Discharge Summary Hospital Course Problems/Dx: (1) BRBPR (bright red blood per rectum) Status: Acute (2) Colitis Status: Acute (3) Lung nodules Status: Acute (4) T2DM (type 2 diabetes mellitus) Status: Acute Qualifiers: Qualified Codes: E11.65 - Type 2 diabetes mellitus with hyperglycemia; Z79.4 - [facility] (current) use of insulin (5) Refusal of blood transfusions as patient is [place] Status: Acute Hospital Course Date of Admission: Oct 13, 2021 at 21:03 Admission Diagnosis: Coliits Family Physician/Provider: Carly,Local Physician Date of Discharge: 10/17/21 Discharge Diagnosis: Likely ulcerative colitis, lung nodules Hospital Course: Gaby Babrer is a 66 year old female with PMH HTN, T2DM on insulin, obesity, who presented with hematochezia and was admitted with colitis. She was transferred from [facility]. She was found to have inflammation from the transverse colon to the rectum on CT scan. She was also incidentally found to have multiple bilateral lung nodules which will need follow up CT in 6-8 weeks. Surgery was consulted and performed colonoscopy which appeared consistent with ulcerative colitis. She was started on Mesalamine. She should follow up with her PCP at [facility] in about a week. She was discharged in stable condition. Labs and Pending Lab Test: Laboratory Tests 10/16/21 16:12: Glucometer 203H 10/16/21 20:22: Glucometer 167H 10/17/21 05:47: Glucometer 136H 10/17/21 06:31: Hemoglobin 9.9L, Hematocrit 29L, Sodium Level 137, Potassium Level 3.6, Chloride Level 107, Carbon Dioxide Level 23, Anion Gap 7, Blood Urea Nitrogen 6L, Creatinine 0.67, Estimat Glomerular Filtration Rate 98, BUN/Creatinine Ratio 9, Glucose Level 123H, Calcium Level 7.9L, Magnesium Level 1.8 10/17/21 11:44: Glucometer 191H Home Meds Active Delzicol (Mesalamine) 400 Mg Cap.drtab. 800 Mg PO WM 30 Days Reported Tylenol Extra Strength (Acetaminophen) 500 Mg Tablet 1,500 Mg PO Q8H PRN TAKES 3 (500MG ) TABS Atorvastatin Calcium 40 Mg Tablet 40 Mg PO HS FILLED 08-28-2021 #30 Vitamin D3 (Cholecalciferol (Vitamin D3)) 50 Mcg (2000 Unit) Capsule 50 Mcg PO DAILY FILLED 09-11-2021 #90 Novolog (Insulin Aspart) 100 Unit/Ml Cartridge 20 Units SQ WITH AFTERNOON MEAL FILLED 05-24-2021 #5 VIALS Metformin HCl ER (Metformin HCl) 500 Mg Tab.er.24h 500 Mg PO HS FILLED 08-28-2021 #90 Metformin HCl ER (Metformin HCl) 500 Mg Tab.er.24 1,000 Mg PO DAILY TAKES 2 (500MG) TABS FILLED 08-28-2021 #90 Lisinopril 40 Mg Tablet 40 Mg PO DAILY FILLED 08-28-2021 #30 Levemir (Insulin Determir) 100 Unit/Ml Soln 25 Units SQ BID FILLED 08-21-2021 #5 VIALS Assessment/Pt Instructions See instructions Discharge Planning: >30 minutes discharge planning Discharge Instructions Discharge Diet: No Restrictions Activity as Tolerated: Yes Consultations Surgery Discharge Physical Examination Vital Signs Vital Signs Date Time Temp Pulse Resp B/P (MAP) Pulse Ox O2 Delivery O2 Flow Rate FiO2 10/17/21 08:04 37.0 76 20 151/81 (104) 98 Room Air 10/16/21 10:47 10.00 General Appearance: No Apparent Distress, Obese Respiratory: Lungs Clear, No Respiratory Distress Cardiovascular: Regular Rate, Rhythm, No Murmur Gastrointestinal: Normal Bowel Sounds, Soft Extremity: Normal Inspection, No Pedal Edema Skin: Normal Color, Warm/Dry Neurologic/Psychiatric: Alert, Normal Mood/Affect Allergies: Coded Allergies: No Known Drug Allergies (Unverified , 10/13/21) Copy Copies To 1: [facility] [place] Summary Date of Admission Oct 13, 2021 at 21:03 Date of Discharge Discharge Date: Oct 17, 2021 Discharge Time: 15:30 Admission Diagnosis Bright red blood per rectum Consults/Procedures Consulations Surgery Procedures Colonoscopy Discharge Diagnosis Likely ulcerative colitis (1) BRBPR (bright red blood per rectum) Status: Acute (2) Colitis Status: Acute (3) Lung nodules Status: Acute (4) T2DM (type 2 diabetes mellitus) Status: Acute Qualifiers: Qualified Codes: E11.65 - Type 2 diabetes mellitus with hyperglycemia; Z79.4 - local [employer] (current) use of insulin (5) Refusal of blood transfusions as patient is Amish Status: Acute KEIRA MOSELEY MD Oct 17, 2021 15:36
[2021-10-17 16:14] VITALS: BP 199/96
[2021-10-17 18:39] VITALS: BP 199/96
== END 2021-10-17 18:50 | disposition home or self-care (01) | DRG 385 ==
LOC: 4TH 21:03
PROVIDERS: ADMIT Family Medicine; ATTEND Internal Medicine
PROC: 0DBN8ZX Excision of Sigmoid Colon, Via Natural or Artificial Opening Endoscopic, Diagnostic (ICD-10-PCS; 2021-10-16)
PROC: 0DBM8ZX Excision of Descending Colon, Via Natural or Artificial Opening Endoscopic, Diagnostic (ICD-10-PCS; principal; 2021-10-16 09:54)
DX: K51.90 Ulcerative colitis, unspecified, without complications (principal); K57.31 Diverticulosis of large intestine without perforation or abscess with bleeding; E87.2 Acidosis; I10 Essential (primary) hypertension; E66.9 Obesity, unspecified; Z68.30 Body mass index [BMI] 30.0-30.9, adult; R91.8 Other nonspecific abnormal finding of lung field; R91.1 Solitary pulmonary nodule; Z20.822 Contact with and (suspected) exposure to COVID-19; E11.65 Type 2 diabetes mellitus with hyperglycemia; Z79.4 Long term (current) use of insulin; Z79.899 Other long term (current) drug therapy; E78.00 Pure hypercholesterolemia, unspecified; E87.6 Hypokalemia; E83.42 Hypomagnesemia; Z53.29 Procedure and treatment not carried out because of patient's decision for other reasons
CPT/HCPCS: 36415; 80048; 82947; 83605; 83735; 85007; 85014; 85018; 85027; 87636; 88305